=== PATIENT | female | born 1955 | race Caucasian/White ===

== ENCOUNTER → 2016-10-30 | Outpatient (CLI) | payer OTHER ==
[~2016-10-30] MED LIST: ACETAMINOPHEN-1 EAC1; DESYREL150 MG PO; ETODOLAC500 MG PO; HYDROXYCHLOROQ200 M1 PO; SYNTHROID150 MCG PO
== END ==
LOC: RAD 01:01
DX: Z12.31 Encounter for screening mammogram for malignant neoplasm of breast (principal)

== ENCOUNTER 2018-03-31 11:14 | Inpatient (IN) | payer OTHER ==
[~2018-03-31] VITALS: Ht 157.5 cm; Wt 86.6 kg
--- NOTE | ~2018-03-31 | HC ---
[facility] [place] [place] [address] CONSULTATION Name: YO CHAPARRO Room #: 201-P [facility] IN M.R.#: [id number] Admission: 03/31/18 Attend Phys: Juan Manuel Helton MD Discharge: 04/01/18 Date of : 53 Report #: [id number] THIS REPORT FOR: //name// CC: Juan Manuel Cortezkristin Huston DATE OF SERVICE: 03/31/2018 INDICATION: Chest pain. HISTORY OF PRESENT ILLNESS: This is a 62-year-old female with a history of rheumatoid arthritis, hypertension and GERD, presenting with chest pains. Last evening, she woke up with pain on the left side of her chest, radiating towards the back area. She denies any diaphoresis, but felt difficulty in catching her breath. The pain lasted for at least 8 at least 6 hours in duration. There is no history of fever, nausea or diarrhea. She felt lightheaded this morning and presented to the ER for an evaluation. PAST MEDICAL HISTORY: Denies any history of diabetes mellitus, hypertension or hypercholesterolemia. ALLERGIES: PENICILLIN. MEDICATIONS: Synthroid, ranitidine, trazodone, codeine. SOCIAL HISTORY: Negative for tobacco use presently. FAMILY HISTORY: Negative for premature CAD. REVIEW OF SYSTEMS: A full 10-point review of systems performed. Only the pertinent positives and negatives are described in the HPI. PHYSICAL EXAMINATION: VITAL SIGNS: Blood pressure is 160/80, heart rate is 70 beats per minute. GENERAL APPEARANCE: An overweight female, in no acute distress. HEENT: Normocephalic. Sclerae are anicteric. NECK: Supple. LUNGS: Clear to auscultation. CARDIAC: Regular rate and rhythm, S1, S2 positive. ABDOMEN: Soft, nontender. EXTREMITIES: No cyanosis, no edema. NEUROLOGIC: Alert and oriented x 3 ECG reveals sinus rhythm, otherwise unremarkable. LABORATORY VALUES: Initial troponin is negative. Creatinine is 1.1. [facility] [address] [place] [address] [facility]ATION [facility]: [facility].#: [id number] Admission: 03/31/18 Attend Phys: Juan Manuel Helton MD Discharge: 04/01/18 Date of : 53 Report #: [id number] count 6.3, hemoglobin 13.9. ASSESSMENT AND PLAN: 1. Chest pain syndrome, her symptoms are concerning. However, she had 6 hours of pain and the initial troponin is negative. The ECG does not show any acute ST segment changes. She does have risk factors and the plan is to proceed with noninvasive stress testing. 2. Hypertension, start amlodipine. 3. Gastroesophageal reflux disease, continue with ranitidine. <ELECTRONICALLY SIGNED> By: Fady Otto MD 04/04/18 0812 1703 Fady Otto MD /lenin
--- NOTE | ~2018-03-31 | EKG ---
[place] [address] [address] [facility] [place] [address] ELECTROCARDIOGRAM REPORT Name: YO CHAPARRO Room #: 201-P ADM IN M.R.#: [id number] Admission: 03/31/18 Attend Phys: Juan Manuel Helton MD Discharge: Date of : 53 Report #: [id number] THIS REPORT FOR: //name// [facility] ED Test Date: 2018-03-31 Test Time: 11:21:36 Pat Name: YO CHAPARRO Department: Room: 201 Gender: F [employer]or Buyer: MZOOK : 1955 Requested By: Curtis Lino Order Number: [id number] MD: Moncho Verma Measurements Intervals [place] Rate: 96 P: 42 NE: 179 QRS: -8 QRSD: 99 T: 42 QT: 377 QTc: 477 Interpretive Statements Sinus rhythm No significant abnormality Baseline wander in lead(s) V6 No previous ECG available for comparison Electronically Signed On 04-01-2018 7:59:36 CDT by Moncho Verma [email or web address] <ELECTRONICALLY SIGNED> By: Moncho Verma MD, [facility] 04/01/18 0759 20 20 Moncho Verma MD, [facility] /EPI
[2018-03-31 11:15] VITALS: BP 175/94
[2018-03-31] MEDS ORDERED: SYNTHROID112 MC1 PO (11:59)
[2018-03-31] MEDS ORDERED: ACID REDUCER75 MG PO (11:59)
[2018-03-31 12:08] LABS: ABSOLUTE NEUTROPHILS 4.2 thou/uL (1.4-8.2); BASOPHILS 0.4 % (0.0-2.0); EOSINOPHILS 0.4 % (0.0-3.0); HEMATOCRIT 39.8 % (37.0-47.0); HEMOGLOBIN 13.9 gm/dL (12.0-15.0); LYMPHOCYTES 25.2 % (24.0-44.0); MCH 31.3 pg (26.0-34.0); MCV 89.3 fL (80.0-100.0); MONOCYTES 8.4 % (1.0-8.0); PLATELET COUNT 318 thou/uL (150-400); POLYS 65.6 % (36.0-66.0); RBC 4.45 mil/uL (4.20-5.00); RDW 13.6 % (10.5-14.5); WBC 6.3 thou/uL (4.0-11.0)
[2018-03-31 12:14] LABS: ANION GAP 8 mmol/L (7-16); BUN 14 mg/dL (7-18); CALCIUM 9.2 mg/dL (8.5-10.1); CHLORIDE 98 mmol/L (98-107); CO2 25 mmol/L (21-32); CREATININE 1.1 mg/dL (0.6-1.0); GLUCOSE 122 mg/dL (74-106); POTASSIUM 3.7 mmol/L (3.5-5.1); SODIUM 131 mmol/L (136-145)
[2018-03-31 12:24] LABS: ALBUMIN 3.8 g/dL (3.4-5.0); MAGNESIUM 2.3 mg/dL (1.8-2.4); SGOT 31 U/L (15-37); SGPT 43 U/L (30-65); TOTAL BILIRUBIN 0.4 mg/dL (<0.1-1.0); TOTAL PROTEIN 7.9 g/dL (6.4-8.2); TROPONIN-I <0.06 ng/mL (<0.06)
[2018-03-31 13:53] VITALS: BP 175/94
[2018-03-31 14:27] LABS: CHOLESTEROL 194 mg/dL (<200); HDL CHOLESTEROL 68 mg/dL (>40); LDL CHOLESTEROL 101 mg/dL (<100); TC:HDL 2.9 Ratio (Not establshd); TRIGLYCERIDE 125 mg/dL (<150); VLDL 25 mg/dL (<40)
[2018-03-31 15:23] VITALS: BP 152/85
[2018-03-31 15:32] LABS: TSH 4.374 uIU/mL (0.358-3.740)
[2018-03-31 20:15] VITALS: BP 135/82
[2018-03-31 23:42] VITALS: BP 99/55
[2018-04-01 04:45] VITALS: BP 98/54
[2018-04-01 05:25] LABS: HEMATOCRIT 39.3 % (37.0-47.0); HEMOGLOBIN 13.4 gm/dL (12.0-15.0); MCH 30.6 pg (26.0-34.0); MCHC 34.1 g/dL (28.0-37.0); MCV 89.7 fL (80.0-100.0); RBC 4.38 mil/uL (4.20-5.00); RDW 13.5 % (10.5-14.5); WBC 4.6 thou/uL (4.0-11.0)
[2018-04-01 05:37] LABS: CALCIUM 9.1 mg/dL (8.5-10.1); CREATININE 1.2 mg/dL (0.6-1.0); MAGNESIUM 2.5 mg/dL (1.8-2.4); POTASSIUM 3.8 mmol/L (3.5-5.1)
[2018-04-01 07:33] VITALS: BP 112/67
[2018-04-01 11:37] VITALS: BP 113/60
[2018-04-01 12:26] VITALS: BP 113/60
== END 2018-04-01 12:59 | disposition home or self-care (01) | DRG 205 ==
LOC: ER 11:14 → 2N 12:58 → EROBS 12:58 → 2N 15:48 → ENTRNSPT 04-01 12:42 → EDTRNSPTSTS 04-01 12:51 → 2N 04-01 12:59
PROVIDERS: Emergency Medicine; Internal Medicine
DX: M94.0 Chondrocostal junction syndrome [Tietze] (principal); N17.0 Acute kidney failure with tubular necrosis; E87.0 Hyperosmolality and hypernatremia; R07.89 Other chest pain; M06.9 Rheumatoid arthritis, unspecified; K21.9 Gastro-esophageal reflux disease without esophagitis; Z90.49 Acquired absence of other specified parts of digestive tract; Z88.0 Allergy status to penicillin; Z87.891 Personal history of nicotine dependence; Z79.899 Other long term (current) drug therapy
CPT/HCPCS: 10081